=== PATIENT | female | born 1990 | race Caucasian/White ===

== ENCOUNTER 2022-04-14 08:22 | Emergency (ER) | payer MEDICAID ==
--- NOTE | 2022-04-14 08:51 | ERPHSYRPT ---
- History of Present Illness Time Seen by Provider: 04/14/22 08:35 Historian: patient Exam Limitations: no limitations Patient Subjective Stated Complaint: Chest pain Triage Nursing Assessment: Patient ambulated back to ED and transferred self to bed. Patient A+O X3. Patient's skin pink, warm and dry. Patient complains of chest pain in middle of chest on and off since last night. Patient complains of intermittent sharp pain 5/10. Lungs clear a/p cassie. Physician History: Patient is a 31-year-old female presents to our ED with her mother for evaluation of sharp intermittent substernal chest pain that started yesterday. Chest pain. Into today. Mother concerned as patient normally does not complain of pain. No associated nausea vomiting or diaphoresis. No trauma. No fever. Symptoms are mild to moderate in intensity. Palpation to anterior chest wall reproduces symptoms. Pain improved with rest. No history of PE. Mother at bedside. Patient /mother voiced no other complaints or concerns at this time. Timing/Duration: yesterday Activities at Onset: none Quality: sharpness Location: substernal Chest Pain Radiation: no radiation Severity of Pain-Max: moderate Severity of Pain-Current: mild Modifying Factors: Improves With: other (Palpation to anterior chest wall reproduces symptoms.) Associated Symptoms: denies symptoms Prior Chest Pain/Cardiac Workup: no prior chest pain Nitro Today/Relief: no nitro taken today Aspirin Treatment Today: no aspirin today Allergies/Adverse Reactions: ibuprofen [From Advil] Allergy (Intermediate, Verified 04/14/22 08:26) Swelling of Face lamotrigine [From Lamictal] Allergy (Mild, Verified 04/14/22 08:26) sulfamethoxazole [From Bactrim] Allergy (Mild, Verified 04/14/22 08:26) trimethoprim [From Bactrim] Allergy (Mild, Verified 04/14/22 08:26) Home Medications: Sertraline HCl [Zoloft] 1 tab PO DAILY 04/14/22 [History] Hx Tetanus, Diphtheria Vaccination/Date Given: Yes Hx Influenza Vaccination/Date Given: No Hx Pneumococcal Vaccination/Date Given: No Immunizations Up to Date: Yes Travel Risk - International Travel Have you traveled outside of the country in past 3 weeks: No - Coronavirus Screening Are you exhibiting any of the following symptoms?: No Close contact with a COVID-19 positive Pt in past 14-21 Days: No - Vaccine Status Have you recieved a Covid-19 vaccination: Yes Transitional Nurse: Pfizer - Vaccination Dates Date of 2cond Vaccination (if applicable): June 2021 - Review of Systems Constitutional: No Symptoms, No Fever, No Chills Eyes: No Symptoms Ears, Nose, & Throat: No Symptoms Respiratory: No Symptoms, No Cough, No Dyspnea Cardiac: No Symptoms, No Chest Pain, No Edema, No Syncope Abdominal/Gastrointestinal: No Symptoms, No Abdominal Pain, No Nausea, No Vomiting, No Diarrhea Genitourinary Symptoms: No Symptoms, No Dysuria Musculoskeletal: No Symptoms, No Back Pain, No Neck Pain Skin: No Symptoms, No Rash Neurological: No Symptoms, No Dizziness, No Focal Weakness, No Sensory Changes Psychological: No Symptoms Endocrine: No Symptoms Hematologic/Lymphatic: No Symptoms Immunological/Allergic: No Symptoms All Other Systems: Reviewed and Negative - Past Medical History Pertinent Past Medical History: Yes Neurological History: Other ENT History: Other Cardiac History: No Pertinent History Respiratory History: Other Endocrine Medical History: Other Musculoskeletal History: Fractures GI Medical History: Other History: No Pertinent History Psycho-Social History: Anxiety Female Reproductive Disorders: No Pertinent History Other Medical History: SEE DETAILED MEDICAL HISTORY IN CHART. 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 - Social History Smoking Status: Never smoker Exposure to second hand smoke: No Drug Use: none Patient Lives Alone: No - Female History Hx Last Menstrual Period: last month Hx Now: No - Nursing Vital Signs Nursing Vital Signs: Initial Vital Signs Temperature 97.6 F 04/14/22 08:28 Pulse Rate 77 04/14/22 08:28 Respiratory Rate 21 04/14/22 08:28 Blood Pressure 132/85 04/14/22 08:28 O2 Sat by Pulse Oximetry 98 04/14/22 08:28 Pain Scale Pain Intensity 3 - Physical Exam General Appearance: no apparent distress, alert Eye Exam: PERRL/EOMI, eyes nml inspection Ears, Nose, Throat Exam: normal ENT inspection, moist mucous membranes Neck Exam: normal inspection, non-tender, supple, full range of motion Respiratory Exam: normal breath sounds, lungs clear, airway intact, No respiratory distress Cardiovascular Exam: regular rate/rhythm, normal heart sounds, normal peripheral pulses, other (Palpation to anterior chest wall reproduces symptoms. Overlying soft tissue intact. No signs of trauma.) Gastrointestinal/Abdomen Exam: soft, normal bowel sounds, No tenderness, No mass Back Exam: normal inspection, No CVA tenderness, No vertebral tenderness Extremity Exam: normal inspection, normal range of motion Neurologic Exam: alert, oriented x 3, cooperative, normal mood/affect, sensation nml, No motor deficits Skin Exam: normal color, warm, dry Lymphatic Exam: No adenopathy SpO2 Interpretation: normal SpO2: 98 O2 Delivery: Room Air - Course Nursing assessment & vital signs reviewed: Yes EKG Interpreted by Me: RATE (77), Sinus Rhythm, NORMAL AXIS, NORMAL INTERVALS - Radiology Exams Chest X-ray Interpretation: Teleradiologist Report (Small mediastinal calcified lymph node scoliosis otherwise negative chest x-ray) Ordered Tests: Active Orders 24 hr Category Date Time Status EKG-ER Only STAT Care 04/14/22 08:43 Active IV Insertion STAT Care 04/14/22 08:43 Active CHEST 1 VIEW (PORTABLE) Stat Exams 04/14/22 08:46 Completed CBC W DIFF Stat Lab 04/14/22 08:45 Completed CMP Routine Lab 04/14/22 11:45 Completed D-DIMER QUANTITATIVE Stat Lab 04/14/22 08:45 Completed HCG,QUALITATIVE URINE Stat Lab 04/14/22 09:06 Completed TROPONIN Q3H Lab 04/14/22 08:45 Completed TROPONIN Q3H Lab 04/14/22 11:45 Completed TROPONIN Q3H Lab 04/14/22 14:45 Ordered TROPONIN Q3H Lab 04/14/22 17:45 Ordered TROPONIN Q3H Lab 04/14/22 20:45 Ordered UA W/RFX CULTURE Stat Lab 04/14/22 09:20 Completed Urine Triage Profile Stat Lab 04/14/22 09:06 Ordered Lab/Rad Data: Laboratory Result Diagrams 04/14/22 08:45 04/14/22 11:45 Laboratory Results 04/14/22 04/14/22 04/14/22 Range/Units 11:45 09:20 09:06 WBC (4.0-10.5) x10^3/uL RBC (4.1-5.4) x10^6/uL Hgb (12.0-16.0) g/dL Hct (35-47) % MCV (78-100) fL MCH (26-32) pg MCHC (32-36) g/dL RDW (11.5-14.0) % Plt Count (150-450) x10^3/uL MPV (7.5-11.0) fL Gran % (36.0-66.0) % Immature Gran % (Auto) (0.00-0.4) % Nucleat RBC Rel Count (0.00-0.1) % Eos # (Auto) (0-0.5) x10^3/uL Immature Gran # (Auto) (0.00-0.03) x10^3u/L Absolute Lymphs (auto) (1.0-4.6) x10^3/uL Absolute Monos (auto) (0.0-1.3) x10^3/uL Absolute Nucleated RBC (0.00-0.01) x10^3u/L Lymphocytes % (24.0-44.0) % Monocytes % (0.0-12.0) % Eosinophils % (0.00-5.0) % Basophils % (0.0-0.4) % Absolute Granulocytes (1.4-6.9) x10^3/uL Basophils # (0-0.4) x10^3/uL D-Dimer (0.0-0.50) ng/mL Sodium 139 (137-145) mmol/L Potassium 4.0 (3.5-5.1) mmol/L Chloride 104 (98-107) mmol/L Carbon Dioxide 25 (22-30) mmol/L Anion Gap 13.1 (5-15) MEQ/L BUN 5 L (7-17) mg/dL Creatinine 0.41 L (0.52-1.04) mg/dL Estimated GFR > 60.0 ML/MIN Glucose 76 (74-106) mg/dL Calcium 9.3 (8.4-10.2) mg/dL Total Bilirubin 0.80 (0.2-1.3) mg/dL AST 30 (14-36) U/L ALT 21 (0-35) U/L Alkaline Phosphatase 38 (38-126) U/L Troponin I < 0.012 (0.000-0.034) ng/mL Serum Total Protein 6.9 (6.3-8.2) g/dL Albumin 4.1 (3.5-5.0) g/dL Urinalys Dipstick Clnc MAIN LAB Urine Color YELLOW (YELLOW) Urine Appearance CLEAR (CLEAR) Urine pH 7.5 (5-6) Ur Specific [place] 1.020 (1.005-1.025) POC Urine Protein Conf NEGATIVE (Negative) Urine Ketones NEGATIVE (NEGATIVE) Urine Nitrite NEGATIVE (NEGATIVE) Urine Bilirubin NEGATIVE (NEGATIVE) Urine Urobilinogen 2 (0-1) mg/dL Urine Leukocytes NEGATIVE (NEGATIVE) Urine WBC (Auto) NONE (0-5) /HPF Urine RBC (Auto) NONE (0-2) /HPF U Epithel Cells (Auto) RARE (FEW) /HPF Urine Bacteria (Auto) NONE (NEGATIVE) /HPF Urine RBC NEGATIVE (0-5) Geronimo/ul Ur Culture Indicated? NO Urine Glucose NEGATIVE (NEGATIVE) mg/dL Urine HCG, Qual NEGATIVE (Negative) 04/14/22 04/14/22 04/14/22 Range/Units 08:45 08:45 08:45 WBC 5.9 (4.0-10.5) x10^3/uL RBC 4.82 (4.1-5.4) x10^6/uL Hgb 13.4 (12.0-16.0) g/dL Hct 41.8 (35-47) % MCV 86.7 (78-100) fL MCH 27.8 (26-32) pg MCHC 32.1 (32-36) g/dL RDW 12.0 (11.5-14.0) % Plt Count 148 L (150-450) x10^3/uL MPV 10.6 (7.5-11.0) fL Gran % 64.5 (36.0-66.0) % Immature Gran % (Auto) 0.3 (0.00-0.4) % Nucleat RBC Rel Count 0.0 (0.00-0.1) % Eos # (Auto) 0.01 (0-0.5) x10^3/uL Immature Gran # (Auto) 0.02 (0.00-0.03) x10^3u/L Absolute Lymphs (auto) 1.38 (1.0-4.6) x10^3/uL Absolute Monos (auto) 0.67 (0.0-1.3) x10^3/uL Absolute Nucleated RBC 0.00 (0.00-0.01) x10^3u/L Lymphocytes % 23.4 L (24.0-44.0) % Monocytes % 11.4 (0.0-12.0) % Eosinophils % 0.2 (0.00-5.0) % Basophils % 0.2 (0.0-0.4) % Absolute Granulocytes 3.80 (1.4-6.9) x10^3/uL Basophils # 0.01 (0-0.4) x10^3/uL D-Dimer 0.22 (0.0-0.50) ng/mL Sodium (137-145) mmol/L Potassium (3.5-5.1) mmol/L Chloride (98-107) mmol/L Carbon Dioxide (22-30) mmol/L Anion Gap (5-15) MEQ/L BUN (7-17) mg/dL Creatinine (0.52-1.04) mg/dL Estimated GFR ML/MIN Glucose (74-106) mg/dL Calcium (8.4-10.2) mg/dL Total Bilirubin (0.2-1.3) mg/dL AST (14-36) U/L ALT (0-35) U/L Alkaline Phosphatase (38-126) U/L Troponin I < 0.012 (0.000-0.034) ng/mL Serum Total Protein (6.3-8.2) g/dL Albumin (3.5-5.0) g/dL Urinalys Dipstick Clnc Urine Color (YELLOW) Urine Appearance (CLEAR) Urine pH (5-6) Ur Specific [place] (1.005-1.025) POC Urine Protein Conf (Negative) Urine Ketones (NEGATIVE) Urine Nitrite (NEGATIVE) Urine Bilirubin (NEGATIVE) Urine Urobilinogen (0-1) mg/dL Urine Leukocytes (NEGATIVE) Urine WBC (Auto) (0-5) /HPF Urine RBC (Auto) (0-2) /HPF U Epithel Cells (Auto) (FEW) /HPF Urine Bacteria (Auto) (NEGATIVE) /HPF Urine RBC (0-5) Geronimo/ul Ur Culture Indicated? Urine Glucose (NEGATIVE) mg/dL Urine HCG, Qual (Negative) - Progress Progress: improved Air Movement: good Progress Note: Patient reassessed. She is well. No active chest pain. Chest pain reproduced with palpation to the chest wall. The origin of patient's chest pain appears to be musculoskeletal. EKG shows a normal sinus rhythm. Chest x-ray is essentially nonremarkable. Troponin negative. D-dimer negative. Slight thrombocytopenia. Vitals are stable. Mother at bedside. They voiced no other complaints or concerns at this time. Will discharge home. They agree to follow -up with primary care doctor within 48 hours for evaluation. Portions of this note were created with voice recognition technology. There may be grammatical, spelling, punctuation or sound alike errors 04/14/22 10:26 Blood Culture(s) Obtained: No Antibiotics given: No Counseled pt/family regarding: lab results, diagnosis, need for follow-up, rad results - Departure Departure Disposition: Home Clinical Impression: Calcified mediastinal lymph node, Scoliosis, Chest wall tenderness Condition: Stable Critical Care Time: No Referrals: SHELBY LADD NP [Primary Care Provider] - Follow up/PCP as directed Additional Instructions: Please follow-up with your family doctor within 48 hours for reevaluation. Discharge/Care Plan CAYETANO SHETH was seen on 04/14/22 in the Emergency Room. The patient was counseled regarding Diagnosis,Lab results, Imaging studies, need for follow up and when to return to the Emergency Room. Prescriptions given: Discharge Note I have spoken with the patient and/or caregivers. I have explained the patient's condition, diagnosis and treatment plan based on the information available to me at this time. I have answered the patient's and/or caregiver's questions and addressed any concerns. The patient and/or caregivers have as good understanding of the patient's diagnosis, condition and treatment plan as can be expected at this point. The vital signs have been stable. The patient's condition is stable and appropriate for discharge from the emergency department. The patient will pursue further outpatient evaluation with the primary care physician or other designated or consulting physician as outlined in the discharge instructions. The patient and/or caregivers are agreeable to this plan of care and follow-up instructions have been explained in detail. The patient and/or caregivers have received these instruction. The patient/and or caregivers are aware that any significant change in condition or worsening of symptoms should prompt an immediate return to this or the closest emergency department or call 911.
--- NOTE | 2022-04-14 09:05 | XRAY ---
Indication: Chest pain. Comparison: November 10, 2020. Portable chest again demonstrates normal heart and lungs again with incidental small mediastinal calcified nodes and small hiatal hernia. Bony thorax intact again with double curvature scoliosis and right clavicle resection. No new/acute findings.
[2022-04-14 09:06] LABS: Basophil (Absolute #) 0.01 x10^3/uL (0-0.4); Eosinophil % 0.2 % (0.00-5.0); Eosinophil (Absolute #) 0.01 x10^3/uL (0-0.5); Hematocrit 41.8 % (35-47); Hemoglobin 13.4 g/dL (12.0-16.0); Lymphocyte (Absolute #) 1.38 x10^3/uL (1.0-4.6); Lymphocytes % 23.4 % (24.0-44.0); Mean Cell Volume 86.7 fL (78-100); Mean Corpuscular Hemoglobin 27.8 pg (26-32); Mean Corpuscular Hgb Concent. 32.1 g/dL (32-36); Mean Platelet Volume 10.6 fL (7.5-11.0); Monocyte (Absolute #) 0.67 x10^3/uL (0.0-1.3); Monocytes % 11.4 % (0.0-12.0); Neutrophil % 64.5 % (36.0-66.0); Platelet Count 148 x10^3/uL (150-450); Red Blood Count 4.82 x10^6/uL (4.1-5.4); White Blood Count 5.9 x10^3/uL (4.0-10.5)
[2022-04-14 09:50] LABS: Epithelial Cells RARE /HPF (FEW)
[2022-04-14 09:52] LABS: Urine Cultured Indicated? NO
[2022-04-14 09:54] LABS: Appearance CLEAR (CLEAR); Bilirubin NEGATIVE (NEGATIVE); Dipstick done @ ? MAIN LAB; Glucose NEGATIVE (NEGATIVE); Ketones NEGATIVE (NEGATIVE); Nitrite NEGATIVE (NEGATIVE); Ph 7.5 (5-6); Protein,Urine Dip NEGATIVE (Negative); RBC NEGATIVE Ery/ul (0-5); Urobilinogen 2 mg/dL (0-1)
[2022-04-14 10:00] LABS: ALBUMIN 4.1 g/dL (3.5-5.0); ALKALINE PHOSPHATASE 38 U/L (38-126); ANION GAP 13.1 MEQ/L (5-15); BLOOD UREA NITROGEN 5 mg/dL (7-17); CHLORIDE 104 mmol/L (98-107); Calcium 9.3 mg/dL (8.4-10.2); Carbon Dioxide 25 mmol/L (22-30); Creatinine 1 0.41 mg/dL (0.52-1.04); EST GLOMERULAR FILTRATION RATE > 60.0 ML/MIN; Glucose 76 mg/dL (74-106); SGOT/AST 30 U/L (14-36); SGPT/ALT 21 U/L (0-35); SODIUM 139 mmol/L (137-145); TROPONIN < 0.012 ng/mL (0.000-0.034); Total Protein 6.9 g/dL (6.3-8.2)
[2022-04-14 10:22] LABS: Amphetamine,Urine NEGATIVE (NEGATIVE); Barbiturate,Urine NEGATIVE (NEGATIVE); Benzodiazepine,Urine NEGATIVE (NEGATIVE); Cocaine,Urine NEGATIVE (NEGATIVE); Methadone,Urine NEGATIVE (NEGATIVE); Opiate,Urine NEGATIVE (NEGATIVE); PCP,Urine NEGATIVE (NEGATIVE); THC,Urine NEGATIVE (NEGATIVE)
[2022-04-14 10:24] VITALS: BP 116/75; PULSE 70
[2022-04-14 10:29] VITALS: O2SAT 98
== END 2022-04-14 10:38 | disposition home or self-care (01) ==
LOC: ED 08:22
DX: I89.8 Other specified noninfective disorders of lymphatic vessels and lymph nodes (principal); M41.9 Scoliosis, unspecified; R07.89 Other chest pain
CPT/HCPCS: 36000; 36415; 71045; 80053; 80307; 81015; 84484; 84703; 85025; 85379; 93005; 99284

== ENCOUNTER 2022-11-01 06:30 | Observation (INO) | payer MEDICAID ==
[2022-11-01] MEDS ORDERED: Lactated Ringers 1,000 ML IV SCH (07:00)
[2022-11-01] MEDS ORDERED: CEFAZOLIN 2 GM-D5W BAG** 2 GM/50 ML ML IV SCH (07:00)
[2022-11-01] MEDS ORDERED: Lactated Ringers 1,000 ML IV ONE ×2 (07:13→09:22)
[2022-11-01] MEDS ORDERED: Versed 2 MG/2 ML Injection IV ONE (07:13)
[2022-11-01] MEDS ORDERED: CEFAZOLIN 2 GM-D5W BAG** 2 GM/50 ML ML IV ONE (07:13)
[2022-11-01] MEDS ORDERED: SUBLIMAZE 100 MCG/2 ML ONE (08:25)
[2022-11-01] MEDS ORDERED: DIPRIVAN 200 MG/20 ML IV ONE (08:25)
[2022-11-01] MEDS ORDERED: Decadron 4 MG INJ ONE ×2 (08:25→09:34)
[2022-11-01] MEDS ORDERED: Xylocaine-Mpf 2% 5 Ml Vial ONE ×2 (08:25→09:34)
[2022-11-01] MEDS ORDERED: Zofran 4 MG/2 ML VIAL ONE (08:25)
[2022-11-01] MEDS ORDERED: Ephedrine Sulfate 50 MG/ML ONE (08:47)
[2022-11-01] MEDS ORDERED: Zemuron 100 MG/10 ML ONE (09:11)
[2022-11-01] MEDS ORDERED: OFIRMEV 100 ML IV ONE (09:22)
[2022-11-01] MEDS ORDERED: TORAdol 30 mg Injection ONE (09:31)
[2022-11-01] MEDS ORDERED: Ketamine HCl 50 MG/ML ONE (09:32)
[2022-11-01] MEDS ORDERED: Magnesium Sulfate 1 GM/2 ML VIAL ONE (09:32)
[2022-11-01] MEDS ORDERED: Marcaine 0.5%/Epinephrine 10 ML ONE (09:34)
[2022-11-01] MEDS ORDERED: DEXMEDETOMIDINE 80 MCG/20ML-NS IV ONE (09:35)
[2022-11-01] MEDS ORDERED: BRIDION 200MG/2ML IV ONE (09:58)
[2022-11-01] MEDS ORDERED: Zofran 4 MG/2 ML VIAL IV PRN (11:59)
[2022-11-01] MEDS: DILAUDID 1 MG/1ML PCA SYRINGE IV PRN (11:59)
[2022-11-01] MEDS: Lactated Ringers 1,000 ML IV SCH ×2 (12:47→20:29)
[2022-11-01 14:25] LABS: Appearance CLEAR (CLEAR); Bilirubin NEGATIVE (NEGATIVE); Dipstick done @ ? MAIN LAB; Glucose NEGATIVE (NEGATIVE); Ketones NEGATIVE (NEGATIVE); Nitrite NEGATIVE (NEGATIVE); Ph 7.5 (5-6); Protein,Urine Dip NEGATIVE (Negative); RBC MODERATE Ery/ul (0-5); Urobilinogen 0.2 mg/dL (0-1)
[2022-11-01 14:26] LABS: Bacteria RARE /HPF (NEGATIVE)
[2022-11-01] MEDS: CEFAZOLIN 2 GM-D5W BAG** 2 GM/50 ML ML IV SCH ×2 (15:10→22:16)
[2022-11-01] MEDS: Reglan 10 MG/2 ML IV SCH ×2 (15:10→22:15)
[2022-11-01] MEDS: ZOLOFT 50 MG TABLET PO SCH (15:10)
[2022-11-01] MEDS: Protonix 40MG Tablet PO SCH (15:10)
[2022-11-01] MEDS: Mylicon 80MG PO SCH ×2 (15:10→22:16)
[2022-11-01 18:18] LABS: Absolute Neutrophil Ct (ANC) 10.42 x10^3/uL (1.4-6.9); Basophil (Absolute #) 0 x10^3/uL (0-0.4); Eosinophil (Absolute #) 0 x10^3/uL (0-0.5); Hematocrit 36.1 % (35-47); Hemoglobin 10.8 g/dL (12.0-16.0); Lymphocyte (Absolute #) 0.47 x10^3/uL (1.0-4.6); Lymphocytes % 4.2 % (24.0-44.0); Mean Cell Volume 83.8 fL (78-100); Mean Corpuscular Hemoglobin 25.1 pg (26-32); Mean Corpuscular Hgb Concent. 29.9 g/dL (32-36); Mean Platelet Volume 10.7 fL (7.5-11.0); Monocyte (Absolute #) 0.19 x10^3/uL (0.0-1.3); Monocytes % 1.7 % (0.0-12.0); Neutrophil % 93.7 % (36.0-66.0); Platelet Count 159 x10^3/uL (150-450); Red Blood Count 4.31 x10^6/uL (4.1-5.4); Red Cell Distribution Width 11.9 % (11.5-14.0); White Blood Count 11.1 x10^3/uL (4.0-10.5)
[2022-11-01] MEDS: Docusate Sodium 100 MG PO SCH (22:16)
[2022-11-02 05:30] LABS: Basophil (Absolute #) 0.02 x10^3/uL (0-0.4); Eosinophil (Absolute #) 0 x10^3/uL (0-0.5); Hematocrit 30.9 % (35-47); Hemoglobin 9.5 g/dL (12.0-16.0); Lymphocyte (Absolute #) 1.33 x10^3/uL (1.0-4.6); Lymphocytes % 8.8 % (24.0-44.0); Mean Cell Volume 83.3 fL (78-100); Mean Corpuscular Hemoglobin 25.6 pg (26-32); Mean Corpuscular Hgb Concent. 30.7 g/dL (32-36); Mean Platelet Volume 10.4 fL (7.5-11.0); Monocyte (Absolute #) 1.54 x10^3/uL (0.0-1.3); Monocytes % 10.2 % (0.0-12.0); Neutrophil % 80.4 % (36.0-66.0); Platelet Count 167 x10^3/uL (150-450); Red Blood Count 3.71 x10^6/uL (4.1-5.4); Red Cell Distribution Width 11.9 % (11.5-14.0); White Blood Count 15.2 x10^3/uL (4.0-10.5)
[2022-11-02] MEDS: Reglan 10 MG/2 ML IV SCH (05:40)
[2022-11-02] MEDS: Mylicon 80MG PO SCH (05:40)
[2022-11-02 06:04] LABS: ALBUMIN 3.5 g/dL (3.5-5.0); ALKALINE PHOSPHATASE 40 U/L (38-126); ANION GAP 7.7 MEQ/L (5-15); BLOOD UREA NITROGEN 5 mg/dL (7-17); CHLORIDE 105 mmol/L (98-107); Calcium 8.5 mg/dL (8.4-10.2); Carbon Dioxide 28 mmol/L (22-30); Creatinine 1 0.46 mg/dL (0.52-1.04); EST GLOMERULAR FILTRATION RATE > 60.0 ML/MIN; Glucose 112 mg/dL (74-106); Potassium 4.3 mmol/L (3.5-5.1); SGOT/AST 35 U/L (14-36); SGPT/ALT 18 U/L (0-35); SODIUM 137 mmol/L (137-145); Total Protein 6.4 g/dL (6.3-8.2)
[2022-11-02] MEDS: DILAUDID 1 MG/1ML PCA SYRINGE IV PRN (07:18)
[2022-11-02 07:49] LABS: Slide Review 1 YES
--- NOTE | 2022-11-02 07:59 | PCM.NOTE ---
Date and Time: 11/02/22 0756 Subjective Assessment: pod 1 sp d&c with subsequent abdominal supracervical hysterectomy pt currently resting in bed and dong well ambulating and tolerating diet. vss afebrile abd; soft incision c/d/intact ext; no clubbing cyanosis or edema hgb; 9.5 a/p sp d&c with subsequent emergent abdominal supracervical hysterectomy b/l s alpingectomy secondary to uncontrolled uterine bleeding dc home today should fu office 2 wks OBJECTIVE DATA Vital Signs: Vital Signs - 24 hr Temp Pulse Resp BP Pulse Ox 11/02/22 07:26 98.4 F 83 16 107/63 94 L 11/02/22 07:18 18 11/02/22 04:00 98.1 F 98 H 15 122/71 98 11/01/22 23:51 97.6 F 92 H 16 119/68 98 11/01/22 22:00 18 11/01/22 19:38 97.8 F 98 H 16 125/76 97 11/01/22 18:51 97 11/01/22 18:00 5 L 11/01/22 16:03 98.9 F 76 16 113/71 97 11/01/22 15:30 95 11/01/22 14:00 18 11/01/22 12:45 58 L 16 102/61 100 11/01/22 12:15 58 L 16 102/57 100 11/01/22 11:59 18 11/01/22 11:45 97.0 F 72 16 109/63 100 11/01/22 11:41 96.4 F 88 18 131/71 100 11/01/22 11:34 96.4 F 88 18 131/71 100 11/01/22 11:30 96.4 F 88 18 131/71 100 Pain Assessment - Last Documented Pain Intensity 5 Intake and Output: Intake & Output 10/30/22 10/31/22 11/01/22 11/02/22 11:59 11:59 11:59 11:59 Intake Total 100 2273 Output Total 1800 Balance 100 473 Weight 58.5 kg Lab Results: Lab Results-Last 24 Hours 11/01/22 11/01/22 11/02/22 Range/Units 09:19 18:05 05:32 WBC 11.1 H 15.2 H (4.0-10.5) x10^3/uL RBC 4.31 3.71 L (4.1-5.4) x10^6/uL Hgb 10.8 L 9.5 L (12.0-16.0) g/dL Hct 36.1 30.9 L (35-47) % MCV 83.8 83.3 (78-100) fL MCH 25.1 L 25.6 L (26-32) pg MCHC 29.9 L 30.7 L (32-36) g/dL RDW 11.9 11.9 (11.5-14.0) % Plt Count 159 167 (150-450) x10^3/uL MPV 10.7 10.4 (7.5-11.0) fL Gran % 93.7 H 80.4 H (36.0-66.0) % Immature Gran % (Auto) 0.4 0.5 H (0.00-0.4) % Nucleat RBC Rel Count 0.0 0.0 (0.00-0.1) % Eos # (Auto) 0 0 (0-0.5) x10^3/uL Immature Gran # (Auto) 0.04 H 0.07 H (0.00-0.03) x10^3u/L Absolute Lymphs (auto) 0.47 L 1.33 (1.0-4.6) x10^3/uL Absolute Monos (auto) 0.19 1.54 H (0.0-1.3) x10^3/uL Absolute Nucleated RBC 0.00 0.00 (0.00-0.01) x10^3u/L Lymphocytes % 4.2 L 8.8 L (24.0-44.0) % Monocytes % 1.7 10.2 (0.0-12.0) % Eosinophils % 0.0 0.0 (0.00-5.0) % Basophils % 0.0 0.1 (0.0-0.4) % Absolute Granulocytes 10.42 H 12.20 H (1.4-6.9) x10^3/uL Basophils # 0 0.02 (0-0.4) x10^3/uL Sodium (137-145) mmol/L Potassium (3.5-5.1) mmol/L Chloride (98-107) mmol/L Carbon Dioxide (22-30) mmol/L Anion Gap (5-15) MEQ/L BUN (7-17) mg/dL Creatinine (0.52-1.04) mg/dL Estimated GFR ML/MIN Glucose (74-106) mg/dL Calcium (8.4-10.2) mg/dL Total Bilirubin (0.2-1.3) mg/dL AST (14-36) U/L ALT (0-35) U/L Alkaline Phosphatase (38-126) U/L Serum Total Protein (6.3-8.2) g/dL Albumin (3.5-5.0) g/dL Urinalys Dipstick Clnc MAIN LAB Urine Color YELLOW (YELLOW) Urine Appearance CLEAR (CLEAR) Urine pH 7.5 (5-6) Ur Specific [place] 1.020 (1.005-1.025) POC Urine Protein Conf NEGATIVE (Negative) Urine Ketones NEGATIVE (NEGATIVE) Urine Nitrite NEGATIVE (NEGATIVE) Urine Bilirubin NEGATIVE (NEGATIVE) Urine Urobilinogen 0.2 (0-1) mg/dL Urine Leukocytes NEGATIVE (NEGATIVE) Urine WBC (Auto) NONE (0-5) /HPF Urine RBC (Auto) 3-5 A (0-2) /HPF U Epithel Cells (Auto) NONE (FEW) /HPF Urine Bacteria (Auto) RARE (NEGATIVE) /HPF Urine RBC MODERATE A (0-5) Geronimo/ul Urine Glucose NEGATIVE (NEGATIVE) mg/dL Slides for Path Review YES 11/02/22 Range/Units 05:32 WBC (4.0-10.5) x10^3/uL RBC (4.1-5.4) x10^6/uL Hgb (12.0-16.0) g/dL Hct (35-47) % MCV (78-100) fL MCH (26-32) pg MCHC (32-36) g/dL RDW (11.5-14.0) % Plt Count (150-450) x10^3/uL MPV (7.5-11.0) fL Gran % (36.0-66.0) % Immature Gran % (Auto) (0.00-0.4) % Nucleat RBC Rel Count (0.00-0.1) % Eos # (Auto) (0-0.5) x10^3/uL Immature Gran # (Auto) (0.00-0.03) x10^3u/L Absolute Lymphs (auto) (1.0-4.6) x10^3/uL Absolute Monos (auto) (0.0-1.3) x10^3/uL Absolute Nucleated RBC (0.00-0.01) x10^3u/L Lymphocytes % (24.0-44.0) % Monocytes % (0.0-12.0) % Eosinophils % (0.00-5.0) % Basophils % (0.0-0.4) % Absolute Granulocytes (1.4-6.9) x10^3/uL Basophils # (0-0.4) x10^3/uL Sodium 137 (137-145) mmol/L Potassium 4.3 (3.5-5.1) mmol/L Chloride 105 (98-107) mmol/L Carbon Dioxide 28 (22-30) mmol/L Anion Gap 7.7 (5-15) MEQ/L BUN 5 L (7-17) mg/dL Creatinine 0.46 L (0.52-1.04) mg/dL Estimated GFR > 60.0 ML/MIN Glucose 112 H (74-106) mg/dL Calcium 8.5 (8.4-10.2) mg/dL Total Bilirubin 0.40 (0.2-1.3) mg/dL AST 35 (14-36) U/L ALT 18 (0-35) U/L Alkaline Phosphatase 40 (38-126) U/L Serum Total Protein 6.4 (6.3-8.2) g/dL Albumin 3.5 (3.5-5.0) g/dL Urinalys Dipstick Clnc Urine Color (YELLOW) Urine Appearance (CLEAR) Urine pH (5-6) Ur Specific [place] (1.005-1.025) POC Urine Protein Conf (Negative) Urine Ketones (NEGATIVE) Urine Nitrite (NEGATIVE) Urine Bilirubin (NEGATIVE) Urine Urobilinogen (0-1) mg/dL Urine Leukocytes (NEGATIVE) Urine WBC (Auto) (0-5) /HPF Urine RBC (Auto) (0-2) /HPF U Epithel Cells (Auto) (FEW) /HPF Urine Bacteria (Auto) (NEGATIVE) /HPF Urine RBC (0-5) Geronimo/ul Urine Glucose (NEGATIVE) mg/dL Slides for Path Review Assessment/Plan (1) Abnormal uterine bleeding Current Visit: Yes Status: Acute Code(s): N93.9 - ABNORMAL UTERINE AND VAGINAL BLEEDING, UNSPECIFIED (2) H/O abdominal supracervical subtotal hysterectomy Current Visit: Yes Status: Acute Code(s): Z90.711 - ACQUIRED ABSENCE OF UTERUS WITH REMAINING CERVICAL STUMP (3) History of dilation and curettage Current Visit: Yes Status: Acute Code(s): Z98.890 - OTHER SPECIFIED POSTPROCEDURAL STATES
--- NOTE | 2022-11-02 08:05 | PCM.DS ---
Discharge Summary Date of Admission: 11/01/22 11:25 Admitting Physician: ANA DOWELL DO Primary Care Provider: SHELBY LADD Allergies Allergies ibuprofen [From Advil] Allergy (Intermediate, Verified 11/01/22 06:56) Swelling of Face rapid release advil lamotrigine [From Lamictal] Allergy (Mild, Verified 11/01/22 06:56) sulfamethoxazole [From Bactrim] Allergy (Mild, Verified 11/01/22 06:56) trimethoprim [From Bactrim] Allergy (Mild, Verified 11/01/22 06:56) Hospital Summary - Hospital Course Hospital Course: pt admitted yesterday secondary to undergoing d&c with attempted ablation however immediately after procedure pt continued with heavy uterine bleeding that was not able to have been controlled secondary to virginal introitus and difficulty in exam and treatment. ablation had been attempted however introitus too narrow. as a result of continued bleeding it was discussed with her legal guardian and mother her current medical status and determined to proceed with hysterectomy after risks and benefits of surgery discussed with her including bowel injury, bladder injury, ureteral injury, pelvic infection, thromboembolic disorder, and any other typical side effects that may occur as a result of hysterectomy. after understanding all risks we proceeded with laparotomy supracervical hysterectomy with b/l salpingectomy and underwent procedure w ithout complication. during postop period did well and had stable hgb at 9.5. pt at this time stable for discharge and was advised to fu in office in 2 wks for postop evaluation. all questions answered to her mother and herself with satisfaction. - Vitals & Intake/Output Vital Signs: Vital Signs Temperature 98.4 F 11/02/22 07:26 Pulse Rate 83 11/02/22 07:26 Respiratory Rate 16 11/02/22 07:26 Blood Pressure 107/63 11/02/22 07:26 O2 Sat by Pulse Oximetry 94 L 11/02/22 07:26 Intake & Output: Intake & Output 10/30/22 10/31/22 11/01/22 11/02/22 11:59 11:59 11:59 11:59 Intake Total 100 2273 Output Total 1800 Balance 100 473 Weight 58.5 kg - Lab Result Diagrams: 11/02/22 05:32 11/02/22 05:32 Lab Results-Last 24 Hrs: Lab Results-Last 24 Hours 11/01/22 11/01/22 11/02/22 Range/Units 09:19 18:05 05:32 WBC 11.1 H 15.2 H (4.0-10.5) x10^3/uL RBC 4.31 3.71 L (4.1-5.4) x10^6/uL Hgb 10.8 L 9.5 L (12.0-16.0) g/dL Hct 36.1 30.9 L (35-47) % MCV 83.8 83.3 (78-100) fL MCH 25.1 L 25.6 L (26-32) pg MCHC 29.9 L 30.7 L (32-36) g/dL RDW 11.9 11.9 (11.5-14.0) % Plt Count 159 167 (150-450) x10^3/uL MPV 10.7 10.4 (7.5-11.0) fL Gran % 93.7 H 80.4 H (36.0-66.0) % Immature Gran % (Auto) 0.4 0.5 H (0.00-0.4) % Nucleat RBC Rel Count 0.0 0.0 (0.00-0.1) % Eos # (Auto) 0 0 (0-0.5) x10^3/uL Immature Gran # (Auto) 0.04 H 0.07 H (0.00-0.03) x10^3u/L Absolute Lymphs (auto) 0.47 L 1.33 (1.0-4.6) x10^3/uL Absolute Monos (auto) 0.19 1.54 H (0.0-1.3) x10^3/uL Absolute Nucleated RBC 0.00 0.00 (0.00-0.01) x10^3u/L Lymphocytes % 4.2 L 8.8 L (24.0-44.0) % Monocytes % 1.7 10.2 (0.0-12.0) % Eosinophils % 0.0 0.0 (0.00-5.0) % Basophils % 0.0 0.1 (0.0-0.4) % Absolute Granulocytes 10.42 H 12.20 H (1.4-6.9) x10^3/uL Basophils # 0 0.02 (0-0.4) x10^3/uL Sodium (137-145) mmol/L Potassium (3.5-5.1) mmol/L Chloride (98-107) mmol/L Carbon Dioxide (22-30) mmol/L Anion Gap (5-15) MEQ/L BUN (7-17) mg/dL Creatinine (0.52-1.04) mg/dL Estimated GFR ML/MIN Glucose (74-106) mg/dL Calcium (8.4-10.2) mg/dL Total Bilirubin (0.2-1.3) mg/dL AST (14-36) U/L ALT (0-35) U/L Alkaline Phosphatase (38-126) U/L Serum Total Protein (6.3-8.2) g/dL Albumin (3.5-5.0) g/dL Urinalys Dipstick Clnc MAIN LAB Urine Color YELLOW (YELLOW) Urine Appearance CLEAR (CLEAR) Urine pH 7.5 (5-6) Ur Specific [place] 1.020 (1.005-1.025) POC Urine Protein Conf NEGATIVE (Negative) Urine Ketones NEGATIVE (NEGATIVE) Urine Nitrite NEGATIVE (NEGATIVE) Urine Bilirubin NEGATIVE (NEGATIVE) Urine Urobilinogen 0.2 (0-1) mg/dL Urine Leukocytes NEGATIVE (NEGATIVE) Urine WBC (Auto) NONE (0-5) /HPF Urine RBC (Auto) 3-5 A (0-2) /HPF U Epithel Cells (Auto) NONE (FEW) /HPF Urine Bacteria (Auto) RARE (NEGATIVE) /HPF Urine RBC MODERATE A (0-5) [place]eronimo/ul Urine Glucose NEGATIVE (NEGATIVE) mg/dL Slides for Path Review YES 11/02/22 Range/Units 05:32 WBC (4.0-10.5) x10^3/uL RBC (4.1-5.4) x10^6/uL Hgb (12.0-16.0) g/dL Hct (35-47) % MCV (78-100) fL MCH (26-32) pg MCHC (32-36) g/dL RDW (11.5-14.0) % Plt Count (150-450) x10^3/uL MPV (7.5-11.0) fL Gran % (36.0-66.0) % Immature Gran % (Auto) (0.00-0.4) % Nucleat RBC Rel Count (0.00-0.1) % Eos # (Auto) (0-0.5) x10^3/uL Immature Gran # (Auto) (0.00-0.03) x10^3u/L Absolute Lymphs (auto) (1.0-4.6) x10^3/uL Absolute Monos (auto) (0.0-1.3) x10^3/uL Absolute Nucleated RBC (0.00-0.01) x10^3u/L Lymphocytes % (24.0-44.0) % Monocytes % (0.0-12.0) % Eosinophils % (0.00-5.0) % Basophils % (0.0-0.4) % Absolute Granulocytes (1.4-6.9) x10^3/uL Basophils # (0-0.4) x10^3/uL Sodium 137 (137-145) mmol/L Potassium 4.3 (3.5-5.1) mmol/L Chloride 105 (98-107) mmol/L Carbon Dioxide 28 (22-30) mmol/L Anion Gap 7.7 (5-15) MEQ/L BUN 5 L (7-17) mg/dL Creatinine 0.46 L (0.52-1.04) mg/dL Estimated GFR > 60.0 ML/MIN Glucose 112 H (74-106) mg/dL Calcium 8.5 (8.4-10.2) mg/dL Total Bilirubin 0.40 (0.2-1.3) mg/dL AST 35 (14-36) U/L ALT 18 (0-35) U/L Alkaline Phosphatase 40 (38-126) U/L Serum Total Protein 6.4 (6.3-8.2) g/dL Albumin 3.5 (3.5-5.0) g/dL Urinalys Dipstick Clnc Urine Color (YELLOW) Urine Appearance (CLEAR) Urine pH (5-6) Ur Specific [place] (1.005-1.025) POC Urine Protein Conf (Negative) Urine Ketones (NEGATIVE) Urine Nitrite (NEGATIVE) Urine Bilirubin (NEGATIVE) Urine Urobilinogen (0-1) mg/dL Urine Leukocytes (NEGATIVE) Urine WBC (Auto) (0-5) /HPF Urine RBC (Auto) (0-2) /HPF U Epithel Cells (Auto) (FEW) /HPF Urine Bacteria (Auto) (NEGATIVE) /HPF Urine RBC (0-5) Geronimo/ul Urine Glucose (NEGATIVE) mg/dL Slides for Path Review - Procedures and Test Procedures and Tests throughout Hospitalization: Therapy Orders & Screens 11/01/22 11:44 Incentive Spirometry Q12H Comment: Diagnosis: S/P Partial Hysterectomy Final Diagnosis/Problem List - Final Discharge Diagnosis/Problem (1) Abnormal uterine bleeding Current Visit: Yes Status: Acute Code(s): N93.9 - ABNORMAL UTERINE AND VAGINAL BLEEDING, UNSPECIFIED (2) H/O abdominal supracervical subtotal hysterectomy Current Visit: Yes Status: Acute Code(s): Z90.711 - ACQUIRED ABSENCE OF UTERUS WITH REMAINING CERVICAL STUMP (3) History of dilation and curettage Current Visit: Yes Status: Acute Code(s): Z98.890 - OTHER SPECIFIED POSTPROCEDURAL STATES - Discharge Disposition: Home, Self-Care Condition: Stable Prescriptions: New Hydrocodone/Acetaminophen [Hydrocodone-Acetamin 5-325 mg] 1 tab PO Q6HPRN PRN #30 tablet MDD 4 PRN Reason: Pain No Action Sertraline HCl [Zoloft] 1 tab PO DAILY Omeprazole 40 mg PO DAILY Follow up with: SHELBY LADD NP [Primary Care Provider] - ANA DOWELL DO [ACTIVE STAFF] - 2 weeks (keep incision clean and dry call for any issues that may arise)
[2022-11-02] MEDS ORDERED: NORCO 5/325 MG PO PRN (08:23)
--- NOTE | 2022-11-02 09:20 | OP ---
SURGERY DATE/TIME: 11/01/2022 9207 PREOPERATIVE DIAGNOSIS: Abnormal uterine bleeding. POSTOPERATIVE DIAGNOSIS: Abnormal uterine bleeding with continued uncontrolled uterine bleeding after attempted ablation. PROCEDURE: Dilatation and curettage with attempted ablation with subsequent emergency laparotomy supracervical hysterectomy, bilateral salpingectomy. SURGEON: Gian Bae D.O. WARP KNITTING MACHINE OPERATOR: Maci Tripp and Hailey Padilla, surgical aides teacher. ANESTHESIA: General. ESTIMATED BLOOD LOSS: 50 cc. COMPLICATIONS: None. INDICATIONS: The risks, benefits, indications and alternatives of the procedure were reviewed with the patient's mother prior to the procedure. The patient understood the risk of infection, bleeding, bowel injury, bladder injury, ureteral injury, pelvic infection, thromboembolic disorder associated with the surgery and desires to have this surgery as a possible means to alleviate her current medical condition. DESCRIPTION OF PROCEDURE AND FINDINGS: At this point the patient is taken to the operating room given general sedation, placed in the dorsal lithotomy position, prepared and draped in the usual sterile fashion. The patient was noted to have a vertical vaginal introitus and a right angle retractor was used and placed into the posterior vaginal wall and another small retractor was placed into the anterior vaginal wall as a means to retract. Tenaculum was placed on the cervix. Dilatation of the cervix was then attempted where a curette was then placed over the fundus of the uterus and curettage was performed in all quadrants of the uterus retrieving a mild amount of tissue. From this point, no other instruments were able to pass through the vaginal opening as NovaSure was attempted however was not able to traverse the vaginal canal. The NovaSure however was attempted to go into the cervical region were at removal the patient started having significant uterine bleeding that could not be controlled secondary to the narrow vaginal opening. At this time the legal guardian was spoken with and was determined to proceed with emergency hysterectomy secondary to uncontrolled uterine bleeding. From this point the patient was placed in supine position, had been given general anesthesia. She was prepared and draped in the normal sterile fashion. A Pfannenstiel incision was made approximately 2 cm above the symphysis pubis and extended sharply through the rectus fascia. The fascia was then incised bilaterally with curved Mays scissors and the muscles of the anterior abdominal wall were in the midline by sharp and blunt dissection. The peritoneum was then grasped between two pickups elevated and entered sharply with Metzenbaum scissors. The pelvis is examined and noted to have approximately an 7 to 8 weeks size uterus. An O'Jeff-O'Jimenez retractor was placed into the incision and the bowel packed away with moist laparotomy sponges. A tenaculum is placed on the fundus of the uterus and was used to elevate the uterus. From this point the LigaSure was used where the bilateral fallopian tubes were excised by placing LigaSure along the mesosalpinx and the tube was removed in its entirety. Hemostasis was obtained. At this point the LigaSure was placed on the left utero-ovarian ligament where it was clamped, coagulated and cut taken down to the round ligament towards the uterine vasculature where the uterine vasculature was then skeletonized. At this point the uterine arteries were skeletonized bilaterally, clamped with Leola clamps transected and suture ligated with 0 Vicryl suture. Hemostasis was assured. The same procedure was performed on both sides and a bladder flap developed. From this point the Bovie was then used to excise and amputate the uterus from its cervical stump and was done so without complication. Hemostasis was obtained by placing 0 Vicryl suture over the cut cervical stump region and the cervical stump region was closed continuous stitch fashion. Bilateral ovaries appeared to be within normal limits. From this point, extensive irrigation was placed with warm normal saline. From this point all operative sponges and instruments were removed from the patient's abdomen. The fascia was then closed with running 0 Vicryl suture and hemostasis was assured. The subcutaneous layer was closed with 3-0 Vicryl suture and the skin was closed with absorbable ann called INSORB. Sponge, lap, needle and instruments counts were correct x2. The patient was then taken to the recovery room in stable condition.
[2022-11-02] MEDS: ZOLOFT 50 MG TABLET PO SCH (09:30)
[2022-11-02] MEDS: Docusate Sodium 100 MG PO SCH (09:30)
[2022-11-02] MEDS: Protonix 40MG Tablet PO SCH (09:30)
[2022-11-02] MEDS ORDERED: NON-FORMULARY ITEM (Omeprazole [Omeprazole] 40 MG Capsule.Dr) PO SCH (10:00)
[2022-11-02 11:22] VITALS: BP 118/58; PULSE 71; O2SAT 96
== END 2022-11-02 13:10 | disposition home or self-care (01) ==
LOC: SDC 06:30 → MED SURG 11:25
PROVIDERS: ADMIT Obstetrics & Gynecology; ATTEND Obstetrics & Gynecology
DX: N93.9 Abnormal uterine and vaginal bleeding, unspecified (principal); N99.61 Intraoperative hemorrhage and hematoma of a genitourinary system organ or structure complicating a genitourinary system procedure; Q99.9 Chromosomal abnormality, unspecified; Z87.730 Personal history of (corrected) cleft lip and palate; Z79.899 Other long term (current) drug therapy; Z20.828 Contact with and (suspected) exposure to other viral communicable diseases
CPT/HCPCS: 36415; 58120; 58180; 64488; 76937; 76942; 80053; 81001; 81025; 85025; 87086; 93268; 94762; G0378; J0690; J1100; J1170; J1885; J2250; J2405; J2704; J3010; J3475; A9270-GY